=== PATIENT | male | born 1995 | race Caucasian/White ===

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

== ENCOUNTER 2017-06-23 13:44 | Emergency (ER) | payer BC ==
[~2017-06-23] VITALS: Ht 182.9 cm; Wt 75.9 kg
[~2017-06-23 13:44] MED LIST changes: -QVRINH80; +QVRINH80 INH; +VNTHFA/IN INH
[2017-06-23 13:46] VITALS: TEMP 36.7; Ht 182.9 cm; Wt 75.9 kg
--- NOTE | 2017-06-23 14:11 | DIAGNOSTIC IMAGING REPORT ---
RIGHT FOOT 3 VIEWS CLINICAL HISTORY: Fall with heel pain. FINDINGS: 3 views of the right foot are obtained. No prior studies are available for comparison at the time of dictation. The skeletal structures are well mineralized. No fracture is seen. The joint spaces of the foot are well-maintained. The overlying soft tissues are within normal limits. IMPRESSION: Unremarkable radiographic assessment of the right foot. Electronically signed by: Sanchez Rahman M.D. 06/23/2017 2:10 PM Dictated Date/Time: 06/23/2017 2:09 PM
[2017-06-23 15:01] VITALS: BP 126/70; PULSE 75; O2SAT 98
--- NOTE | 2017-06-23 20:29 | EMERGENCY ROOM VISIT NOTE ---
History First contact with patient: 14:02 Chief Complaint: HEEL PAIN Stated Complaint: HEEL PAIN/BOTTOM History of Present Illness The patient is a 22 year old male who presents to the Emergency Room with complaints of persistent heel pain after jumping off of a wall one This night, or over 4 days ago. The patient reports pain with weightbearing , rating his discomfort an 8 out of 10. He has not noticed any swelling or bruising of the heel. He denies any pain radiating into the leg or midfoot/ forefoot. Review of Systems 10 system review was performed and was negative except for pertinent positives and negatives as indicated in history of present illness Past Medical/Surgical History Medical Problems: (1) Tachycardia Family History FH: heart disease Social History Smoking Status: Current Some Day Smoker Alcohol Use: occasionally Marital Status: single Occupation Status: [employer] student Current/Historical Medications Scheduled Beclomethasone Dip (Qvar), 2 PUFFS INH BID Scheduled PRN Albuterol Hfa (Ventolin Hfa), 2 PUFFS INH Q4H PRN for SOB/Wheezing Physical Exam Vital Signs Date Time Temp Pulse Resp B/P (MAP) Pulse Ox O2 Delivery O2 Flow Rate FiO2 06/23/17 15:01 75 16 126/70 98 06/23/17 13:46 36.7 74 18 134/66 97 Room Air Physical Exam CONSTITUTIONAL: Healthy and well nourished. Alert and oriented X 3 with positive affect. HEENT: Normocephalic, atraumatic. Pupils equal, round and reactive. NECK: Full active range of motion without discomfort. MUSCULOSKELETAL: Examination of the right foot does not show any edema or ecchymosis about the heel. He does have mild edema near the medial and lateral malleoli. Negative anterior draw test. No worsening pain with subtalar motion. No tenderness to palpation or edema through the Achilles tendon. Pedal pulses are intact. INTEGUMENTARY: No rash or other significant dermatologic conditions noted. NEUROLOGIC: No focal neurologic deficits noted. Right foot and toes are sensory intact. Medical Decision & Procedures ER Provider Diagnostic Interpretation: My interpretation of right foot x-rays does not show any acute fractures or dislocations. Radiologist report is as follows: RIGHT FOOT 3 VIEWS CLINICAL HISTORY: Fall with heel pain. FINDINGS: 3 views of the right foot are obtained. No prior studies are available for comparison at the time of dictation. The skeletal structures are well mineralized. No fracture is seen. The joint spaces of the foot are well-maintained. The overlying soft tissues are within normal limits. IMPRESSION: Unremarkable radiographic assessment of the right foot. ED Course Patient history and physical exam were performed. Nurse's notes were reviewed. Vital signs were reviewed and were normal. The patient refused any analgesics while in the emergency department. Right foot x-rays were normal. Although his x-rays were normal, I did suggest that he follow-up with orthopedics for further reevaluation. Crutches were dispensed for additional relief. He was encouraged to intermittently apply ice to the foot and heel region. Ibuprofen and Tylenol in alternating fashion if needed for additional pain relief. The patient was provided contact information for [facility] who is on-call. The patient was happy with plan of care, voiced understanding of all discharge instructions, and denied any significant pain at the time of discharge. Medical Decision Blood Pressure Screening Patient's blood pressure: Normal blood pressure Impression Primary Impression: Contusion of right foot Departure Information Referrals No Doctor, Assigned (PCP) Patient Instructions My [facility] Problem Qualifiers Primary Impression: Contusion of right foot Encounter type: initial encounter Qualified Codes: S90.31XA - Contusion of right foot, initial encounter
== END 2017-06-23 15:03 | disposition home or self-care (01) ==
LOC: C.EDB 13:46 → C.EDD 15:03
DX: S90.31XA Contusion of right foot, initial encounter (principal); W22.8XXA Striking against or struck by other objects, initial encounter; Y93.89 Activity, other specified; Y99.8 Other external cause status; F17.200 Nicotine dependence, unspecified, uncomplicated